=== PATIENT | female | born 1985 | race Two or more races ===

== ENCOUNTER 2020-05-11 18:10 | Emergency (ER) | payer BC, OTHER ==
[2020-05-11 18:51] VITALS: BP 127/78; PULSE 115; TEMP 98.1; BMI 31.1
== END 2020-05-11 21:01 | disposition home or self-care (01) ==
LOC: JER 18:10 → JERFT 18:10
PROC: 0HQLXZZ Repair Left Lower Leg Skin, External Approach (ICD-10-PCS; principal; 2020-05-11)
DX: S91.012A Laceration without foreign body, left ankle, initial encounter (principal)
CPT/HCPCS: 73610-TC-LT-FY; 99284-25

== ENCOUNTER 2020-05-22 13:19 | Emergency (ER) | payer BC, OTHER ==
[2020-05-22 13:35] VITALS: BP 114/75; PULSE 88; BMI 30.8
[2020-05-22 13:42] VITALS: TEMP 97.3
== END 2020-05-22 14:35 | disposition home or self-care (01) ==
LOC: JERFT 13:19
DX: Z48.02 Encounter for removal of sutures (principal)
CPT/HCPCS: 99281-25